=== PATIENT | male | born 1950 | race Caucasian/White ===

== ENCOUNTER → 2017-07-19 17:22 | Outpatient (CLI) | payer MEDICARE, BC | END | disposition home or self-care (01) | LOC: D.RAD → D.CT 17:00 → D.RAD 17:22 | DX: Z85.038 Personal history of other malignant neoplasm of large intestine (principal) ==

== ENCOUNTER → 2017-08-13 08:01 | Outpatient (CLI) | payer MEDICARE, BC | END | disposition home or self-care (01) | LOC: D.US | DX: K76.89 Other specified diseases of liver (principal); K76.0 Fatty (change of) liver, not elsewhere classified ==

== ENCOUNTER → 2017-08-16 09:11 | Outpatient (CLI) | payer MEDICARE | END | disposition home or self-care (01) | LOC: D.MRI 09:11 | DX: K76.9 Liver disease, unspecified (principal) ==

== ENCOUNTER → 2017-08-28 08:02 | Outpatient (CLI) | payer MEDICARE | END | disposition home or self-care (01) | LOC: D.NM | DX: G95.9 Disease of spinal cord, unspecified (principal); K76.9 Liver disease, unspecified ==

== ENCOUNTER → 2018-12-03 14:14 | Outpatient (CLI) | payer MEDICARE | END | disposition home or self-care (01) | LOC: D.RAD 14:14 | DX: R05 Cough (principal); R49.0 Dysphonia ==

== ENCOUNTER → 2020-12-13 14:18 | Outpatient (CLI) | payer MEDICARE | END | disposition home or self-care (01) | LOC: D.NM 12:00 | PROVIDERS: ATTEND Family Medicine | DX: C61 Malignant neoplasm of prostate (principal) ==